=== PATIENT | male | born 1965 | race Asian ===

== ENCOUNTER 2019-07-27 00:11 | Emergency (ER) | payer OTHER ==
[~2019-07-27] VITALS: Ht 170.2 cm; Wt 74.7 kg
[2019-07-27] MEDS ORDERED: SODIUM CHLORIDE 0.9% 100 ML ONE (00:29)
[2019-07-27] MEDS ORDERED: IOVERSOL 350 MG/ML 100 ML VIAL ONE (00:29)
[2019-07-27 00:39] LABS: GLUCOSE,POINT OF CARE 206 MG/DL (70-110)
[2019-07-27 00:49] LABS: BASOPHILS % (AUTO) 0.2 % (0.0-2.0); EOSINOPHILS % (AUTO) 0.2 % (1.0-6.0); HEMATOCRIT 45.1 % (41-53); HEMOGLOBIN 15.2 g/dL (13.5-17.5); LYMPHOCYTES # (AUTO) 0.6 K/uL (1.0-4.8); LYMPHOCYTES % (AUTO) 8.8 % (22.0-44.0); MEAN CORPUSCULAR HEMOGLOBIN 31.2 pg (26.0-34.0); MEAN CORPUSCULAR HGB CONC 33.7 G/dL (31.0-37.0); MEAN CORPUSCULAR VOLUME 93 fL (80-100); MONOCYTES # (AUTO) 0.3 K/uL (0.1-1.0); MONOCYTES % (AUTO) 3.7 % (2.0-9.0); NEUTROPHILS # (AUTO) 6.1 K/uL (1.8-7.7); PLATELET COUNT (AUTO) 215 K/uL (150-450); RED BLOOD CELL COUNT(AUTO) 4.86 MIL/uL (4.50-5.90); RED CELL DISTRIBUTION WIDTH 13.2 % (11.5-14.5)
[2019-07-27 00:52] LABS: ANION GAP 11 mmol/L (8-16); CALCIUM, TOTAL 9.2 mg/dL (8.8-10.5); CARBON DIOXIDE 26 mmol/L (22-29); CHLORIDE 102 mmol/L (98-107); CREATININE 1.03 mg/dL (0.60-1.30); GLOMERULAR FILTR. RATE CALC > 60 mL/min (>60); GLUCOSE,RANDOM 197 mg/dL (70-110); NEUTROPHILS % (AUTO) 87.1 % (40.0-70.0); POTASSIUM 4.3 mmol/L (3.5-5.1); SODIUM SERUM 139 mmol/L (136-145); UREA NITROGEN, BLOOD 13 mg/dL (7-18)
[2019-07-27 00:57] LABS: ALANINE AMINOTRANSFERASE 23 U/L (12-78); ALBUMIN 4.3 g/dL (3.4-5.0); ALKALINE PHOSPHATASE 62 U/L (46-116); ASPARTATE AMINOTRANSFERASE 12 U/L (15-37); BILIRUBIN,TOTAL 0.3 mg/dL (0.1-1.0); TOTAL PROTEIN, SERUM 8.3 g/dL (6.4-8.2)
[2019-07-27] MEDS ORDERED: ASPIRIN 325 MG TABLET PO ONE (01:15)
[2019-07-27 01:32] LABS: CREATINE KINASE, TOTAL ONLY 137 U/L (39-308)
[2019-07-27 01:35] LABS: ACETAMINOPHEN < 2 mcg/mL (10-30)
[2019-07-27] MEDS ORDERED: ASPIRIN 300 MG RECTAL SUPPOSITORY PR ONE (02:00)
[2019-07-27] MEDS ORDERED: SODIUM CHLORIDE 0.9% 1,000 ML IV ONE (03:15)
[2019-07-27 04:00] VITALS: BP 146/87
== END 2019-07-27 04:02 | disposition short-term general hospital (02) ==
LOC: EMS 00:14
DX: I63.511 Cerebral infarction due to unspecified occlusion or stenosis of right middle cerebral artery (principal); R41.82 Altered mental status, unspecified
CPT/HCPCS: 36415; 70450; 70496; 71045; 80053; 82550; 82962; 83735; 84484; 85025; 85610; 85730; 93005; 96360; 99291; G0480; J7030; J7050; Q9967; G0481

== ENCOUNTER 2021-02-18 09:27 | Emergency (ER) | payer OTHER ==
[~2021-02-18] VITALS: Ht 170.2 cm; Wt 70.8 kg
[~2021-02-18 09:27] MED LIST: ASPI-1198 PO; ATOR20TA65 PO; LEVE500T20 PO
[2021-02-18] MEDS ORDERED: LevETIRAcetam 500 MG TABLET PO ONE (10:15)
[2021-02-18 10:36] LABS: ANION GAP 9 mmol/L (8-16); CALCIUM, TOTAL 9.1 mg/dL (8.8-10.5); CARBON DIOXIDE 28 mmol/L (22-29); CHLORIDE 107 mmol/L (98-107); CREATININE 1.11 mg/dL (0.60-1.30); GLOMERULAR FILTR. RATE CALC > 60 mL/min (>60); GLUCOSE,RANDOM 158 mg/dL (70-110); POTASSIUM 4.7 mmol/L (3.5-5.1); SODIUM SERUM 144 mmol/L (136-145); UREA NITROGEN, BLOOD 15 mg/dL (7-18)
[2021-02-18 12:00] VITALS: BP 133/84
== END 2021-02-18 12:19 | disposition home or self-care (01) ==
LOC: EMS 09:27
DX: G40.909 Epilepsy, unspecified, not intractable, without status epilepticus (principal); E11.9 Type 2 diabetes mellitus without complications; I10 Essential (primary) hypertension; Z86.73 Personal history of transient ischemic attack (TIA), and cerebral infarction without residual deficits; Z79.82 Long term (current) use of aspirin
CPT/HCPCS: 80048; 99283

== ENCOUNTER 2022-01-16 07:10 | Day surgery (SDC) | payer MEDICARE, OTHER ==
[~2022-01-16] VITALS: Ht 170.2 cm; Wt 68.1 kg
[~2022-01-16 07:10] MED LIST changes: +AMLO5TAB66 PO; +AMMO225L14 TP; +APIX5TAB PO; -ASPI-1198 PO; +ASPI-1450 PO; -ATOR20TA65 PO; +ATOR40TA71 PO; +BACL5TAB PO; +CHLO473M2 PO; +CLOT30SO2 TP; +FLUT16SP NASAL; +LOSA-381 PO; +NPH,100V SQ; +OMEG10005 PO; +PANT40TA54 PO; +POLY17PO52 PO; +POTA-92 PO; +SERT150C PO; +SODIUM CHLORIDE 0.9% 1,000 ML IV ONE; +SODIUM CHLORIDE 0.9% 1,000 ML ONE
[2022-01-16 07:40] LABS: COVID AG,FIA SOURCE NASAL SWAB
[2022-01-16 08:46] LABS: GLUCOMETER DEV NAME(LOC) SDS.; GLUCOSE,POINT OF CARE 109 MG/DL (70-110)
[2022-01-16] MEDS ORDERED: LIDOCAINE/PF 2% 5 ML VIAL IM ONE (12:00)
[2022-01-16] MEDS ORDERED: PROPOFOL 1% 20 ML VIAL IVP ONE (12:00)
== END 2022-01-16 11:10 | disposition home or self-care (01) ==
LOC: SURGERY 07:10
PROVIDERS: ATTEND Internal Medicine Gastroenterology
DX: D12.5 Benign neoplasm of sigmoid colon (principal); D12.3 Benign neoplasm of transverse colon; K57.30 Diverticulosis of large intestine without perforation or abscess without bleeding; F32.9 Major depressive disorder, single episode, unspecified; I10 Essential (primary) hypertension; G40.909 Epilepsy, unspecified, not intractable, without status epilepticus; K64.0 First degree hemorrhoids; Z79.899 Other long term (current) drug therapy; Z20.822 Contact with and (suspected) exposure to COVID-19; Z98.890 Other specified postprocedural states; Z79.82 Long term (current) use of aspirin; Z79.01 Long term (current) use of anticoagulants; Z87.891 Personal history of nicotine dependence
CPT/HCPCS: 45385; 43239; 87426; 82962; 88305; C1769; J2704; J3490; J7030; C9803